=== PATIENT | female | born 1970 | race Caucasian/White ===

== ENCOUNTER 2024-07-03 15:04 | Emergency (ER) | payer MEDICAID ==
[~2024-07-03] VITALS: Ht 165.1 cm; Wt 70.0 kg
[2024-07-03 15:08] VITALS: TEMP 36.4; O2SAT 98
[2024-07-03 16:01] LABS: BASOPHILS % 0.7 % (0.0-2.0); EOSINOPHILS % 2.9 % (0.0-5.0); HEMATOCRIT. 39.3 % (36.0-48.0); LYMPHOCYTES % 24.3 % (20.0-50.0); MEAN CORPUSCULAR HEMOGLOBIN 27.4 pg (28.0-32.0); MEAN CORPUSCULAR VOLUME 83.2 fL (81.0-99.0); MEAN PLATELET VOLUME 8.5 fl (7.4-10.4); MONOCYTES % 7.3 % (2.0-8.0); NEUTROPHILS % 64.8 % (40.0-76.0); PLATELET 237 x1000/uL (130-400); RED BLOOD CELL COUNT 4.73 mill/uL (4.2-5.4); RED CELL DISTRIBUTION WIDTH 15.9 % (11.6-14.6); WHITE BLOOD COUNT 7.6 x1000/uL (4.5-11.0)
[2024-07-03 16:06] LABS: CHLORIDE 111 mEq/L (98-107); POTASSIUM 3.8 mEq/L (3.5-5.1); SODIUM 143 mEq/L (136-145)
[2024-07-03 16:07] LABS: CARBON DIOXIDE 26 mEq/L (21-32)
[2024-07-03 16:08] LABS: CALCIUM 9.5 mg/dL (8.7-10.4)
[2024-07-03 16:12] LABS: CREATININE 0.7 mg/dL (0.6-1.0); GLUCOSE 119 mg/dL (70-105)
[2024-07-03 16:13] LABS: UREA NITROGEN BLOOD 10 mg/dL (9-23)
[2024-07-03 16:24] LABS: TROPONIN I HIGH SENSITIVITY < 4 ng/L (3.0-34)
[2024-07-03 17:20] VITALS: BP 133/76; PULSE 72; RESP 18; O2SAT 100
== END 2024-07-03 17:42 | disposition home or self-care (01) ==
LOC: ER 15:04
DX: R07.89 Other chest pain (principal); E11.9 Type 2 diabetes mellitus without complications; I95.9 Hypotension, unspecified
CPT/HCPCS: 36415; 71045; 80048; 84484; 85025; 93005; 99285